=== PATIENT | male | born 1950 | race African-American/Black ===

== ENCOUNTER 2017-07-12 13:29 | Inpatient (IN) | payer OTHER ==
[~2017-07-12] VITALS: Ht 160 cm; Wt 42.5 kg
[2017-07-12] VITALS (7 sets, daily range): BP systolic 7–142; BP diastolic 36–101
--- NOTE | ~2017-07-12 | EKG ---
[address] [employer] [place] [address] ELECTROCARDIOGRAM REPORT Name: JESSE POLLACK GUERO Room #: 210-P ADM IN M.R.#: [id number] Admission: 07/12/17 Attend Phys: Familia Anders MD Discharge: Date of : 52 Report #: [id number] THIS REPORT FOR: //name// [facility] ED Test Date: 2017-07-12 Test Time: 13:50:17 Pat Name: JESSE POLLACK Department: Room: 210 Gender: M Setup Technician: [id number] : 1950 Requested By: Alvina Anderson Order Number: [id number] MD: Devin Rand Measurements Intervals [place] Rate: 71 P: 72 ND: 133 QRS: 69 QRSD: 168 T: -2 QT: 462 QTc: 503 Interpretive Statements Sinus rhythm Right bundle branch block ST depr, consider ischemia, anterolateral lds Compared to ECG 06/30/2015 10:29:53 Possible ischemia now present Sinus tachycardia no longer present Atrial premature complex(es) no longer present Electronically Signed On 07-13-2017 10:59:03 CDT by Devin Rand [email or web address] <ELECTRONICALLY SIGNED> By: Devin Rand MD, FAC 07/13/17 1059 1350 1350 Devin Rand MD, [facility] /EPI
--- NOTE | ~2017-07-12 | EKG ---
[address] [address] ELECTROCARDIOGRAM REPORT Name: EVITA POLLACKDOM JACK Room #: 241-[facility] IN M.R.#: [id number] Admission: 07/12/17 Attend Phys: Familia Anders MD Discharge: 07/13/17 Date of : 52 Report #: [id number] THIS REPORT FOR: //name// [facility] Test Date: 2017-07-13 Test Time: 16:06:21 Pat Name: JESSE POLLACK Department: Room: 241 P Gender: M Pe Manager: AZAEL : 1950 Requested By: Yasmany Tompkins Order Number: [id number] MD: Shiraz Dickey Measurements Intervals [place] Rate: 84 P: 80 MI: 159 QRS: 116 QRSD: 171 T: 23 QT: 442 QTc: 523 Interpretive Statements Sinus rhythm Right bundle branch block Compared to ECG 07/12/2017 13:50:17 Possible ischemia no longer present Electronically Signed On 07-14-2017 8:46:34 CDT by Shiraz Dickey [email or web address] <ELECTRONICALLY SIGNED> By: Shiraz Dickey MD 07/14/17 0846 160 Shiraz Dickey MD /EPI
--- NOTE | ~2017-07-12 | EKG ---
[address] [employer] [address] ELECTROCARDIOGRAM REPORT Name: JESSE POLLACK GUERO Room #: 241-P ADM IN M.R.#: [id number] Admission: 07/12/17 Attend Phys: Familia Anders MD Discharge: Date of : 52 Report #: [id number] THIS REPORT FOR: //name// [facility] Test Date: 2017-07-13 Test Time: 17:31:18 Pat Name: JESSE POLLACK Department: Room: 241 P Gender: M Social Services Designee: AZAEL : 1950 Requested By: Yasmany Tompkins Order Number: [id number] MD: Devin Rand Measurements Intervals [place] Rate: 90 P: 29 WI: 98 QRS: 149 QRSD: 152 T: 44 QT: 344 QTc: 421 Interpretive Statements Sinus rhythm with first degree AV block RBBB Compared to ECG 07/12/2017 13:50:17 Low voltage in limb leads now present Electronically Signed On 07-13-2017 18:07:44 CDT by Devin Rand [email or web address] <ELECTRONICALLY SIGNED> By: Devin Rand MD, [facility] 07/13/17 1807 173 30 Devin Rand MD, [facility] /EPI
[~2017-07-12 13:29] MED LIST: ACETAMINOPHEN-1 EAC1 PO; ALDACTONE25 MG PO; ASPIR 8181 MG PO; ASPIRIN325 PO; CARVEDILOL12.5 MG PO; CARVEDILOL6.25 MG PO; CLARITIN10 MG PO; COLCHICINE0.6 MG PO; COREG PO; FISH OIL 1,0001 EAC8 PO; FUROSEMIDE 40 M40 M1 PO; IMDUR 30 MG TAB30 M1 PO; K-DUR 20 MEQ T20 MEQ PO; LASIX 20 MG TAB20 MG PO; LISINOPRIL10 MG PO; LISINOPRIL20 MG PO; MAGOX 400400 MG PO; MEDROL DOSPAK21 TAB PO; MEN'S 50+ DAIL1 EACH PO; NICOTINE TRANSD14 M1 TRANSDERM; NICOTINE TRANSD21 M1; NITROSTAT0.4 MG SL; POTASSIUM20 PO; PRAVACHOL40 MG PO; PREDNISONE 20 M20 MG PO; TRIAMCINOLONE A80 G2 TOP; TRINATE TABLET1 TAB PO; TYLENOL325 MG PO; VITAMIN B-1100 M1 PO; VITAMINE B-1100 MG PO; ZANTAC 150MG T150 M1 PO; [UNRECOGNIZED DRUG - OTHER]
[2017-07-12 14:23] LABS: ANION GAP 16 mmol/L (7-16); BUN 56 mg/dL (7-18); CALCIUM 8.9 mg/dL (8.5-10.1); CHLORIDE 92 mmol/L (98-107); CO2 19 mmol/L (21-32); CREATININE 3.4 mg/dL (0.7-1.3); GLUCOSE 46 mg/dL (74-106); POTASSIUM 4.9 mmol/L (3.5-5.1); SODIUM 127 mmol/L (136-145)
[2017-07-12 14:32] LABS: ALBUMIN 2.4 g/dL (3.4-5.0); ALKALINE PHOSPHATASE 218 U/L (46-116); SGOT 116 U/L (15-37); SGPT 23 U/L (30-65); TOTAL BILIRUBIN 1.2 mg/dL (<0.1-1.0); TROPONIN-I < 0.04 ng/mL (<0.04-0.07)
[2017-07-12 14:55] LABS: HEMATOCRIT 27.2 % (42.0-52.0); HEMOGLOBIN 9.3 gm/dL (14.0-18.0); MANUAL DIFF YES; MCH 33.5 pg (26.0-34.0); MCHC 34.2 g/dL (28.0-37.0); PLATELET COUNT 143 thou/uL (150-400); RBC 2.78 mil/uL (4.50-6.00); RDW 13.3 % (10.5-14.5); WBC 3.5 thou/uL (4.0-11.0)
[2017-07-12 15:15] LABS: ABSOLUTE NEUTROPHILS 2.5 thou/uL (1.4-8.2); PLATELET ESTIMATE NORMAL; TOTAL CELL COUNT 100
[2017-07-12 15:42] LABS: URINE BILIRUBIN 3+ (Negative); URINE BLOOD 1+ (Negative); URINE GLUCOSE-RANDOM* NEGATIVE (Negative); URINE KETONES 1+ (Negative); URINE NITRITE NEGATIVE (Negative); URINE PROTEIN (DIPSTICK) TRACE (Negative); URINE UROBILINOGEN 0.2 E.U./dl (0.2-1.0)
[2017-07-12 15:43] LABS: MAGNESIUM 2.3 mg/dL (1.8-2.4); PHOSPHORUS 4.1 mg/dL (2.5-4.9)
[2017-07-12 15:46] LABS: ICTOTEST (BILI CONFIRMATORY) Negative (Negative); URINE COLOR DARK YELLOW
[2017-07-12 15:50] LABS: AMP/METHAMP Negative (Negative); BARBITURATES Negative (Negative); BENZODIAZEPINES Negative (Negative); COCAINE Negative (Negative); METHADONE Negative (Negative); OPIATES Negative (Negative); PCP Negative (Negative); THC Negative (Negative)
[2017-07-12 16:02] LABS: AMORPHOUS URATES Many /LPF (None Seen); BACTERIA 1-9 Few /HPF (None Seen); CASTS None Seen /LPF (None Seen); SQUAMOUS 4-10 Moderate /LPF (0-3); URINE RBC None Seen /HPF (0-2); URINE WBC None Seen /HPF (0-5)
[2017-07-12 16:45] LABS: FOLIC ACID 11.6 ng/mL (8.6-58.9)
[2017-07-13] VITALS (51 sets, daily range): BP systolic 45–174; BP diastolic 12–138
[2017-07-13 03:30] LABS: HEMATOCRIT 24.7 % (42.0-52.0); HEMOGLOBIN 8.4 gm/dL (14.0-18.0); MCH 32.8 pg (26.0-34.0); MCHC 33.9 g/dL (28.0-37.0); MCV 96.9 fL (80.0-100.0); RBC 2.55 mil/uL (4.50-6.00); RDW 13.1 % (10.5-14.5); WBC 4.4 thou/uL (4.0-11.0)
[2017-07-13 03:34] LABS: CALCIUM 7.5 mg/dL (8.5-10.1); POTASSIUM 4.1 mmol/L (3.5-5.1)
[2017-07-13 12:06] LABS: FREE T4 1.37 ng/dL (0.82-1.77)
[2017-07-13 16:13] LABS: HEMATOCRIT 22.4 % (42.0-52.0); HEMOGLOBIN 7.3 gm/dL (14.0-18.0); MCH 32.8 pg (26.0-34.0); MCHC 32.4 g/dL (28.0-37.0); MCV 101.2 fL (80.0-100.0); RBC 2.21 mil/uL (4.50-6.00); RDW 13.6 % (10.5-14.5); WBC 7.8 thou/uL (4.0-11.0)
[2017-07-13 16:16] LABS: CALCIUM 6.9 mg/dL (8.5-10.1); CREATININE 3.5 mg/dL (0.7-1.3); POTASSIUM 4.9 mmol/L (3.5-5.1)
[2017-07-13 16:25] LABS: ALBUMIN 1.7 g/dL (3.4-5.0); TOTAL BILIRUBIN 0.8 mg/dL (<0.1-1.0); TOTAL PROTEIN 4.8 g/dL (6.4-8.2); TROPONIN-I 0.07 ng/mL (<0.04-0.07)
[2017-07-13 17:10] LABS: HEMATOCRIT 22.5 % (42.0-52.0)
[2017-07-13 17:26] LABS: APTT 81.4 Seconds (24.5-32.8); INR 1.6; PROTIME 15.8 Seconds (9.3-11.4)
[2017-07-13 18:00] LABS: ABG SAMPLE TYPE ARTERIAL; BE(vivo) 18.5 mmol/L (-2 to +3); HCO3 45.5 mmol/L (22.0-26.0); O2(CT) 10.4 mL/dL (15.0-23.0); O2Hb 96.8 % (92.0-98.0); PO2 234.2 mmHg (80.0-100.0); pH 7.396 (7.360-7.450); sO2 99.5 % (92.0-98.0); tCO2 47.8 mmol/L (24.0-30.0)
[2017-07-13 18:01] LABS: LACTATE 11.47 mmol/L (0.5-2.0); PCO2 75.8 mmHg (35.0-45.0)
[2017-07-13 18:02] LABS: STICK SITE L.FEMORAL; TIDAL VOLUME 450 ml
== END 2017-07-13 21:35 | DRG 682 ==
LOC: ER 13:29 → EROBS 15:27 → 2N 15:53 → ICU 07-13 16:01
PROVIDERS: Family Medicine; Hospitalist; Internal Medicine Pulmonary Disease; Physician Assistant
PROC: 5A12012 Performance of Cardiac Output, Single, Manual (ICD-10-PCS; principal; 2017-07-13)
PROC: 5A1935Z Respiratory Ventilation, Less than 24 Consecutive Hours (ICD-10-PCS; 2017-07-13)
PROC: 0BH17EZ Insertion of Endotracheal Airway into Trachea, Via Natural or Artificial Opening (ICD-10-PCS; 2017-07-13)
DX: N17.0 Acute kidney failure with tubular necrosis (principal); E43 Unspecified severe protein-calorie malnutrition; E87.1 Hypo-osmolality and hyponatremia; D61.818 Other pancytopenia; Z68.1 Body mass index [BMI] 19.9 or less, adult; I42.9 Cardiomyopathy, unspecified; K70.30 Alcoholic cirrhosis of liver without ascites; I25.10 Atherosclerotic heart disease of native coronary artery without angina pectoris; Z66 Do not resuscitate; F17.210 Nicotine dependence, cigarettes, uncomplicated; D64.9 Anemia, unspecified; E86.0 Dehydration; E16.2 Hypoglycemia, unspecified; F10.20 Alcohol dependence, uncomplicated; Z95.1 Presence of aortocoronary bypass graft; Z90.49 Acquired absence of other specified parts of digestive tract; Z79.899 Other long term (current) drug therapy; Z88.8 Allergy status to other drugs, medicaments and biological substances
CPT/HCPCS: 10078; 10081; 27000